=== PATIENT | female | born 1980 | race Caucasian/White ===

== ENCOUNTER 2017-04-16 13:36 | Emergency (ER) | payer OTHER ==
[~2017-04-16] VITALS: Ht 162.6 cm; Wt 70.9 kg
[~2017-04-16 13:36] MED LIST: LISI-660 PO
[2017-04-16 15:39] VITALS: BP 110/80
[2017-04-16] MEDS ORDERED: PERTUSS(ACELL),DIPH,TET VAC/PF 0.5 ML VIAL IM ONE (15:45)
[2017-04-16] MEDS ORDERED: BACITRACIN 0.9 GM PACKET OINTMENT TP ONE (16:15)
== END 2017-04-16 16:28 | disposition home or self-care (01) ==
LOC: EMS 13:37
DX: S81.812A Laceration without foreign body, left lower leg, initial encounter (principal); L08.9 Local infection of the skin and subcutaneous tissue, unspecified; I10 Essential (primary) hypertension; E78.00 Pure hypercholesterolemia, unspecified; E03.9 Hypothyroidism, unspecified; W45.8XXA Other foreign body or object entering through skin, initial encounter; Y93.H2 Activity, gardening and landscaping; Y92.89 Other specified places as the place of occurrence of the external cause; Y99.8 Other external cause status
CPT/HCPCS: 90471; 90715; 99283

== ENCOUNTER 2018-02-01 11:55 | Emergency (ER) | payer OTHER ==
[~2018-02-01] VITALS: Ht 162.6 cm; Wt 61.4 kg
[2018-02-01 14:15] VITALS: BP 118/67
== END 2018-02-01 14:19 | disposition home or self-care (01) ==
LOC: EMS 12:06
DX: S06.0X0A Concussion without loss of consciousness, initial encounter (principal); S13.9XXA Sprain of joints and ligaments of unspecified parts of neck, initial encounter; M54.6 Pain in thoracic spine; F41.9 Anxiety disorder, unspecified; I10 Essential (primary) hypertension; F32.9 Major depressive disorder, single episode, unspecified; E78.00 Pure hypercholesterolemia, unspecified; E03.9 Hypothyroidism, unspecified; F17.210 Nicotine dependence, cigarettes, uncomplicated; Y04.2XXA Assault by strike against or bumped into by another person, initial encounter; Y93.89 Activity, other specified; Y92.89 Other specified places as the place of occurrence of the external cause; Y99.8 Other external cause status
CPT/HCPCS: 70450; 99284

== ENCOUNTER 2019-11-07 00:42 | Emergency (ER) | payer SELFPAY ==
[~2019-11-07] VITALS: Ht 162.6 cm; Wt 59.1 kg
[2019-11-07] MEDS ORDERED: CefTRIAXone 1 GM/DEXTROSE 50 ML IV ONE (02:15)
[2019-11-07] MEDS ORDERED: SULFAMETHOX/TRIMETH 20 ML in DEXTROSE 5%-WATER 250 ML IV ONE (02:15)
[2019-11-07 02:17] VITALS: BP 124/86
[2019-11-07 02:58] LABS: BASOPHILS % (AUTO) 1.3 % (0.0-2.0); EOSINOPHILS % (AUTO) 1.7 % (1.0-6.0); HEMATOCRIT 27.3 % (36-46); LYMPHOCYTES # (AUTO) 1.7 K/uL (1.0-4.8); MEAN CORPUSCULAR HEMOGLOBIN 16.8 pg (26.0-34.0); MEAN CORPUSCULAR HGB CONC 29.2 G/dL (31.0-37.0); MEAN CORPUSCULAR VOLUME 57 fL (80-100); MONOCYTES # (AUTO) 0.7 K/uL (0.1-1.0); MONOCYTES % (AUTO) 7.3 % (2.0-9.0); NEUTROPHILS # (AUTO) 6.8 K/uL (1.8-7.7); NEUTROPHILS % (AUTO) 71.7 % (40.0-70.0); PLATELET COUNT (AUTO) 480 K/uL (150-450); RED BLOOD CELL COUNT(AUTO) 4.76 MIL/uL (4.00-5.20); RED CELL DISTRIBUTION WIDTH 19.5 % (11.5-14.5)
[2019-11-07 02:59] LABS: ANION GAP 12 mmol/L (8-16); CALCIUM, TOTAL 8.8 mg/dL (8.8-10.5); CARBON DIOXIDE 23 mmol/L (22-29); CHLORIDE 103 mmol/L (98-107); CREATININE 0.64 mg/dL (0.60-1.30); GLOMERULAR FILTR. RATE CALC > 60 mL/min (>60); GLUCOSE,RANDOM 99 mg/dL (70-110); POTASSIUM 3.7 mmol/L (3.5-5.1); SODIUM SERUM 138 mmol/L (136-145); UREA NITROGEN, BLOOD 14 mg/dL (7-18)
[2019-11-07 03:05] LABS: ALANINE AMINOTRANSFERASE 20 U/L (12-78); ALBUMIN 3.5 g/dL (3.4-5.0); ALKALINE PHOSPHATASE 114 U/L (46-116); ASPARTATE AMINOTRANSFERASE 22 U/L (15-37); BILIRUBIN,TOTAL 0.2 mg/dL (0.1-1.0); TOTAL PROTEIN, SERUM 7.9 g/dL (6.4-8.2)
== END 2019-11-07 03:00 | disposition left against medical advice (07) ==
LOC: EMS 00:44
DX: L08.9 Local infection of the skin and subcutaneous tissue, unspecified (principal); I10 Essential (primary) hypertension; E78.00 Pure hypercholesterolemia, unspecified; E03.9 Hypothyroidism, unspecified; F32.9 Major depressive disorder, single episode, unspecified; F17.210 Nicotine dependence, cigarettes, uncomplicated
CPT/HCPCS: 70360; J0696; J3490; J7060

== ENCOUNTER 2022-12-21 21:08 | Emergency (ER) | payer OTHER ==
[~2022-12-21] VITALS: Ht 162.6 cm; Wt 70.5 kg
[2022-12-21 22:15] VITALS: BP 119/59
[2022-12-21] MEDS ORDERED: CEPH-558 PO (23:07)
[2022-12-21] MEDS ORDERED: IBUP-1492 PO (23:07)
== END 2022-12-21 23:15 | disposition home or self-care (01) ==
LOC: EMS 21:08
DX: M25.542 Pain in joints of left hand (principal); M79.89 Other specified soft tissue disorders; F41.9 Anxiety disorder, unspecified; F32.A Depression, unspecified; I10 Essential (primary) hypertension; F17.210 Nicotine dependence, cigarettes, uncomplicated
CPT/HCPCS: 99283

== ENCOUNTER 2023-06-11 07:32 | Emergency (ER) | payer OTHER ==
[~2023-06-11] VITALS: Ht 162.6 cm; Wt 72.7 kg
[~2023-06-11 07:32] MED LIST changes: +CEPH-558 PO; +IBUP-1492 PO; -LISI-660 PO
[2023-06-11 07:46] VITALS: TEMP 98.3
[2023-06-11] MEDS ORDERED: KETOROLAC TROMETHAMINE 30 MG/ML VIAL IVP ONE (08:00)
[2023-06-11] MEDS ORDERED: SODIUM CHLORIDE 0.9% 1,000 ML IV ONE (08:00)
[2023-06-11 08:18] LABS: BASOPHILS % (AUTO) 0.3 % (0.0-2.0); EOSINOPHILS % (AUTO) 0.6 % (1.0-6.0); HEMATOCRIT 32.2 % (36-46); HEMOGLOBIN 9.9 g/dL (12.0-16.0); LYMPHOCYTES # (AUTO) 1.2 K/uL (1.0-4.8); LYMPHOCYTES % (AUTO) 8.7 % (22.0-44.0); MEAN CORPUSCULAR HEMOGLOBIN 19.1 pg (26.0-34.0); MEAN CORPUSCULAR HGB CONC 30.6 G/dL (31.0-37.0); MEAN CORPUSCULAR VOLUME 62 fL (80-100); MONOCYTES # (AUTO) 0.4 K/uL (0.1-1.0); MONOCYTES % (AUTO) 2.7 % (2.0-9.0); NEUTROPHILS # (AUTO) 11.8 K/uL (1.8-7.7); PLATELET COUNT (AUTO) 480 K/uL (150-450); RED BLOOD CELL COUNT(AUTO) 5.18 MIL/uL (4.00-5.20); WHITE BLOOD COUNT (AUTO) 13.5 K/uL (4.5-11.0)
[2023-06-11 08:21] LABS: NEUTROPHILS % (AUTO) 87.7 % (40.0-70.0)
[2023-06-11 08:24] LABS: ANION GAP 8 mmol/L (8-16); CALCIUM, TOTAL 8.9 mg/dL (8.8-10.5); CARBON DIOXIDE 25 mmol/L (22-29); CHLORIDE 98 mmol/L (98-107); CREATININE 0.73 mg/dL (0.60-1.30); GLOMERULAR FILTR. RATE CALC > 60 mL/min (>60); GLUCOSE,RANDOM 132 mg/dL (70-110); POTASSIUM 3.4 mmol/L (3.5-5.1); SODIUM SERUM 131 mmol/L (136-145); UREA NITROGEN, BLOOD 9 mg/dL (7-18)
[2023-06-11 08:30] LABS: ALANINE AMINOTRANSFERASE 20 U/L (12-78); ALKALINE PHOSPHATASE 137 U/L (46-116); ASPARTATE AMINOTRANSFERASE 18 U/L (15-37); BILIRUBIN,TOTAL 0.3 mg/dL (0.1-1.0); TOTAL PROTEIN, SERUM 9.2 g/dL (6.4-8.2)
[2023-06-11 08:46] LABS: APPEARANCE,URINE CLEAR (CLEAR); BILIRUBIN,URINE NEGATIVE (NEGATIVE); COLOR,URINE LIGHT YELLOW (YELLOW); GLUCOSE, URINE (UA) NEGATIVE (NEGATIVE); KETONES,URINE NEGATIVE (NEGATIVE); LEUKOCYTE ESTERASE ,URINE NEGATIVE (NEGATIVE); NITRATE,URINE NEGATIVE (NEGATIVE); OCCULT BLOOD,URINE MODERATE (NEGATIVE); PROTEIN,URINE TRACE mg/dL (NEGATIVE); SPECIFIC GRAVITIY, URINE 1.019 (1.003-1.030); UROBILINOGEN,URINE <=1.0 mg/dL (<=1.0)
[2023-06-11 08:53] LABS: BACTERIA,URINE Few /HPF (None Seen); SQUAMOUS EPITHELIAL CELL,UR Few /LPF (None Seen); WBC,URINE None Seen /HPF (0-5)
[2023-06-11] MEDS ORDERED: IBUP-1492 PO (10:18)
[2023-06-11 10:27] VITALS: BP 140/92; PULSE 60; RESP 18
== END 2023-06-11 10:58 | disposition home or self-care (01) ==
LOC: EMS 07:32
DX: N20.0 Calculus of kidney (principal); F41.9 Anxiety disorder, unspecified; F17.210 Nicotine dependence, cigarettes, uncomplicated; F32.A Depression, unspecified; Z98.890 Other specified postprocedural states
CPT/HCPCS: 80053; 81001; 84703; 85025; 36415; 99283; 96361; 96374; J1885

== ENCOUNTER 2023-06-14 13:27 | Inpatient (IN) | payer OTHER ==
[~2023-06-14] VITALS: Ht 162.6 cm; Wt 72.7 kg
[2023-06-14] MEDS ORDERED: CefTRIAXone 1 GM/DEXTROSE 50 ML IV ONE (14:30)
[2023-06-14] MEDS ORDERED: 0.9% SODIUM CHLORIDE 10 ML SYRINGE IVP PRN (14:30)
[2023-06-14] MEDS ORDERED: SODIUM CHLORIDE 0.9% 2,200 ML IV ONE (14:30)
[2023-06-14 14:57] LABS: APPEARANCE,URINE HAZY (CLEAR); BILIRUBIN,URINE NEGATIVE (NEGATIVE); COLOR,URINE LIGHT ORANGE (YELLOW); GLUCOSE, URINE (UA) NEGATIVE (NEGATIVE); KETONES,URINE NEGATIVE (NEGATIVE); LEUKOCYTE ESTERASE ,URINE MODERATE (NEGATIVE); NITRATE,URINE NEGATIVE (NEGATIVE); OCCULT BLOOD,URINE LARGE (NEGATIVE); PROTEIN,URINE 100-200,SEE CONFIRM mg/dL (NEGATIVE); SPECIFIC GRAVITIY, URINE 1.013 (1.003-1.030); UROBILINOGEN,URINE <=1.0 mg/dL (<=1.0)
[2023-06-14 15:08] LABS: BACTERIA,URINE Moderate /HPF (None Seen); SQUAMOUS EPITHELIAL CELL,UR Few /LPF (None Seen)
[2023-06-14 15:09] LABS: BASOPHILS % (AUTO) 0.1 % (0.0-2.0); EOSINOPHILS % (AUTO) 0.2 % (1.0-6.0); HEMATOCRIT 23.7 % (36-46); HEMOGLOBIN 7.4 g/dL (12.0-16.0); LYMPHOCYTES # (AUTO) 0.5 K/uL (1.0-4.8); LYMPHOCYTES % (AUTO) 4.3 % (22.0-44.0); MEAN CORPUSCULAR HGB CONC 31.1 G/dL (31.0-37.0); MEAN CORPUSCULAR VOLUME 61 fL (80-100); MONOCYTES # (AUTO) 0.7 K/uL (0.1-1.0); MONOCYTES % (AUTO) 6.3 % (2.0-9.0); NEUTROPHILS # (AUTO) 9.5 K/uL (1.8-7.7); PLATELET COUNT (AUTO) 239 K/uL (150-450); RED BLOOD CELL COUNT(AUTO) 3.88 MIL/uL (4.00-5.20); RED CELL DISTRIBUTION WIDTH 18.3 % (11.5-14.5); WHITE BLOOD COUNT (AUTO) 10.6 K/uL (4.5-11.0)
[2023-06-14 15:09] LABS: SULFOSALICYLIC ACID,URINE 2+ (Negative)
[2023-06-14 15:14] LABS: NEUTROPHILS % (AUTO) 89.1 % (40.0-70.0)
[2023-06-14 15:21] LABS: ANION GAP 13 mmol/L (8-16); CALCIUM, TOTAL 7.6 mg/dL (8.8-10.5); CARBON DIOXIDE 24 mmol/L (22-29); CHLORIDE 92 mmol/L (98-107); CREATININE 0.65 mg/dL (0.60-1.30); GLOMERULAR FILTR. RATE CALC > 60 mL/min (>60); GLUCOSE,RANDOM 124 mg/dL (70-110); INR 1.1 (0.9-1.1); POTASSIUM 3.2 mmol/L (3.5-5.1); PROTHROMBIN TIME 11.1 SEC (9.4-11.6); SODIUM SERUM 129 mmol/L (136-145); UREA NITROGEN, BLOOD 9 mg/dL (7-18)
[2023-06-14 15:27] LABS: ALANINE AMINOTRANSFERASE 19 U/L (12-78); ALKALINE PHOSPHATASE 109 U/L (46-116); ASPARTATE AMINOTRANSFERASE 21 U/L (15-37); BILIRUBIN,TOTAL 0.4 mg/dL (0.1-1.0); TOTAL PROTEIN, SERUM 6.2 g/dL (6.4-8.2)
[2023-06-14 15:30] LABS: LACTIC ACID 0.7 mmol/L (0.4-2.0)
[2023-06-14 15:34] LABS: RBC MORPHOLOGY COMMENT ABNORMAL RBC MORPH
[2023-06-14 15:35] LABS: PATHOLOGY REVIEW, DIFF YES
[2023-06-14 15:52] LABS: TROPONIN I-HIGH SENSITIVITY 9 ng/L (<51)
[2023-06-14] MEDS ORDERED: POTASSIUM CHLORIDE 20 MEQ ER TABLET PO ONE (16:15)
[2023-06-14] MEDS ORDERED: ACETAMINOPHEN 500 MG TABLET PO ONE (16:15)
[2023-06-14] MEDS ORDERED: MORPHINE SULFATE 4 MG/ML SYRINGE IVP ONE (16:15)
[2023-06-14] MEDS ORDERED: KETOROLAC TROMETHAMINE 30 MG/ML VIAL IVP ONE (16:15)
[2023-06-14] MEDS ORDERED: ONDANSETRON HCL 4 MG/2 ML VIAL IVP ONE (16:15)
[2023-06-14] MEDS ORDERED: SODIUM CHLORIDE 0.9% 1,000 ML IV ONE (17:15)
[2023-06-14] MEDS ORDERED: POTASSIUM CHLORIDE 20 MEQ ER TABLET PO PRN (17:15)
[2023-06-14] MEDS ORDERED: POTASSIUM CHL 10 MEQ/WATER 50 ML IV PRN (17:15)
[2023-06-14] MEDS ORDERED: ACETAMINOPHEN 325 MG TABLET PO PRN (17:30)
[2023-06-14] MEDS ORDERED: MAGNESIUM HYDROXIDE SUSPENSION 30 ML UDCUP PO PRN (17:30)
[2023-06-14] MEDS ORDERED: ONDANSETRON HCL 4 MG/2 ML VIAL IVP PRN (17:30)
[2023-06-14] MEDS ORDERED: ZOLPIDEM TARTRATE 5 MG TABLET PO PRN (17:30)
[2023-06-14 17:52] LABS: COVID AG,FIA SOURCE NASAL SWAB
[2023-06-14 18:19] LABS: INFLUENZA TYPE A NEGATIVE FOR TYPE A (NEGATIVE); INFLUENZA TYPE B NEGATIVE FOR TYPE B (NEGATIVE)
[2023-06-14 18:25] LABS: SARS-COV2 (COVID) ANTIGEN,FIA Negative (Negative)
[2023-06-14 21:23] VITALS: BP 129/64; PULSE 87; RESP 18; TEMP 97.7
[2023-06-14] MEDS ORDERED: INFLUENZA VIRUS VACCINE QVS 2023-24 (6MO+)/PF 60 MCG/0.5 ML SYRINGE IM. ONE (23:45)
[2023-06-14] MEDS ORDERED: PNEUMOCOCCAL VACCINE POLYVALENT 0.5 ML SYRINGE [PPSV23] IM. ONE (23:45)
[2023-06-15] MEDS: HEPARIN SODIUM,PORCINE 5,000 UNITS/ML VIAL SQ SCH ×4 (00:52→23:23)
[2023-06-15] MEDS: OxyCODONE HCL/ACETAMINOPHEN 5-325 MG TABLET PO PRN ×4 (02:37→20:55)
[2023-06-15 04:21] VITALS: BP 118/65; PULSE 97; RESP 18; TEMP 98.7
[2023-06-15 06:33] LABS: ANION GAP 10 mmol/L (8-16); CALCIUM, TOTAL 7.7 mg/dL (8.8-10.5); CARBON DIOXIDE 24 mmol/L (22-29); CHLORIDE 101 mmol/L (98-107); CREATININE 0.69 mg/dL (0.60-1.30); GLOMERULAR FILTR. RATE CALC > 60 mL/min (>60); GLUCOSE,RANDOM 128 mg/dL (70-110); POTASSIUM 3.6 mmol/L (3.5-5.1); SODIUM SERUM 134 mmol/L (136-145); UREA NITROGEN, BLOOD 8 mg/dL (7-18)
[2023-06-15] MEDS: FAMOTIDINE 20 MG TABLET PO SCH (08:23)
[2023-06-15 15:00] VITALS: BP 141/95; PULSE 110; RESP 20; TEMP 100.1
[2023-06-15] MEDS: CefTRIAXone 1 GM/DEXTROSE 50 ML IV SCH (15:16)
[2023-06-15] MEDS ORDERED: SODIUM CHLORIDE 0.9% 500 ML IV ONE (15:21)
[2023-06-15 16:59] VITALS: BP 135/87; PULSE 98; RESP 18; TEMP 98.3
[2023-06-15 19:08] VITALS: BP 148/88; PULSE 100; RESP 20; TEMP 98.5
[2023-06-16] MEDS: OxyCODONE HCL/ACETAMINOPHEN 5-325 MG TABLET PO PRN ×4 (03:48→20:17)
[2023-06-16 04:00] VITALS: BP 166/89; PULSE 109; RESP 21; TEMP 100.5
[2023-06-16 05:13] VITALS: BP 126/70; PULSE 107; RESP 20; TEMP 99.1
[2023-06-16 07:29] VITALS: BP 131/75; PULSE 101; RESP 20; TEMP 98.6
[2023-06-16] MEDS: FAMOTIDINE 20 MG TABLET PO SCH (09:24)
[2023-06-16] MEDS: HEPARIN SODIUM,PORCINE 5,000 UNITS/ML VIAL SQ SCH ×2 (09:24→16:00)
[2023-06-16] MEDS: AmLODIPine BESYLATE 10 MG TABLET PO SCH (13:42)
[2023-06-16] MEDS: CefTRIAXone 1 GM/DEXTROSE 50 ML IV SCH (15:32)
[2023-06-16 15:41] VITALS: BP 150/85; PULSE 104; RESP 20; TEMP 100.8
[2023-06-16 19:30] VITALS: BP 136/73; PULSE 94; RESP 16; TEMP 98.5
[2023-06-17] MEDS: HEPARIN SODIUM,PORCINE 5,000 UNITS/ML VIAL SQ SCH ×2 (00:14→07:56)
[2023-06-17] MEDS: OxyCODONE HCL/ACETAMINOPHEN 5-325 MG TABLET PO PRN ×3 (00:16→11:54)
[2023-06-17 04:00] VITALS: BP 121/78; PULSE 92; RESP 16; TEMP 98.8
[2023-06-17 07:24] VITALS: BP 139/79; PULSE 99; RESP 20; TEMP 98.3
[2023-06-17 07:53] VITALS: BP 139/79; PULSE 99; RESP 20; TEMP 99
[2023-06-17] MEDS: FAMOTIDINE 20 MG TABLET PO SCH (07:55)
[2023-06-17] MEDS: AmLODIPine BESYLATE 10 MG TABLET PO SCH (07:56)
[2023-06-17] MEDS ORDERED: *CLINICAL-LEVOFLOXACIN IVPB DOSING CLINICAL ONE (13:00)
[2023-06-17] MEDS ORDERED: LEVOFLOXACIN 750 MG/D5% WATER 150 ML IV SCH (14:00)
== END 2023-06-17 15:00 | disposition left against medical advice (07) | DRG 720 ==
LOC: EMS 13:31 → 6S 18:28
PROVIDERS: ADMIT Internal Medicine; ATTEND Internal Medicine
DX: A41.50 Gram-negative sepsis, unspecified (principal); E87.1 Hypo-osmolality and hyponatremia; N12 Tubulo-interstitial nephritis, not specified as acute or chronic; F17.200 Nicotine dependence, unspecified, uncomplicated; I10 Essential (primary) hypertension; F41.9 Anxiety disorder, unspecified; F32.A Depression, unspecified; R51.9 Headache, unspecified; E87.6 Hypokalemia; D64.9 Anemia, unspecified; Z53.29 Procedure and treatment not carried out because of patient's decision for other reasons; Z20.822 Contact with and (suspected) exposure to COVID-19
CPT/HCPCS: 70450; 70486; 71045; 74176; 80048; 80053; 81001; 81002; 83605; 84145; 84484; 84703; 85025; 85610; 87040; 87086; 87186; 87804; 93005; 99285; J0696; J1644; J1885; J1956; J2270; J2405; J7030; J7040; 36415-L1; 36415-TC